=== PATIENT | female | born 2000 | race American Indian/Alaskan Native ===

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

== ENCOUNTER 2020-01-18 10:36 | Emergency (ER) | payer MEDICAID ==
[2020-01-18 10:53] VITALS: BP 138/100
[2020-01-18] MEDS ORDERED: DICYCLOMINE 20 MG TAB PO ONE (12:09)
--- NOTE | 2020-01-18 12:14 | Emergency Department Report ---
ED Abdominal Pain HPI - General Chief Complaint: Abdominal Pain Stated Complaint: ABD PAIN Time Seen by Provider: 01/18/20 11:54 Source: patient Mode of arrival: Ambulatory Limitations: No Limitations - History of Present Illness Initial Comments: 19-year-old -Citizen Of [place] female presents to the emergency room complaining of abdominal pain for the last 2 days. Patient states last night it got worse. Patient reports that is achy constant. Denies any unusual foods no sick contact. Patient reports she is tried taking Tums yesterday and this morning. She also tried Maalox. She reports a decrease in appetite. She currently has Implanon in her arm for control. Past medical history is negative no known drug allergies. Currently takes no medications on a daily basis. She denies any fever chills no nausea no vomiting no diarrhea no constipation. MD Complaint: abdominal pain Onset/Timin -: days(s) Location: epigastric Severity scale (0 -10): 6 Quality: aching Consistency: constant Improves With: nothing Worsens With: nothing Associated Symptoms: denies: nausea, vomiting, diarrhea, constipation - Related Data Previous Rx's Medication Instructions Recorded Last Taken Type Dicyclomine [Bentyl] 10 mg PO QID #12 capsule 01/18/20 Unknown Rx Allergies Allergy/AdvReac Type Severity Reaction Status Date / Time No Known Allergies Allergy Unverified 01/18/20 10:48 ED Review of Systems ROS: Stated complaint: ABD PAIN Other details as noted in HPI Comment: All other systems reviewed and negative ED Past Medical Hx - Past Medical History Hx Hypertension: No Hx Diabetes: No Hx Deep Vein Thrombosis: No Hx Renal Disease: No Hx Sickle Cell Disease: No Hx Seizures: No Hx Asthma: No - Surgical History Past Surgical History?: No - Social History Smoking Status: Never Smoker - Medications Home Medications: Home Medications Medication Instructions Recorded Confirmed Last Taken Type Dicyclomine [Bentyl] 10 mg PO QID #12 capsule 01/18/20 Unknown Rx ED Physical Exam - General Limitations: No Limitations General appearance: alert, in no apparent distress - Head Head exam: Present: atraumatic, normocephalic - Eye Eye exam: Present: normal appearance - ENT ENT exam: Present: mucous membranes moist - Neck Neck exam: Present: normal inspection - Respiratory Respiratory exam: Present: normal lung sounds bilaterally - Cardiovascular Cardiovascular Exam: Present: regular rate - GI/Abdominal GI/Abdominal exam: Present: soft, normal bowel sounds. Absent: distended, tenderness, guarding - Extremities Exam Extremities exam: Present: normal inspection, full ROM - Back Exam Back exam: Present: normal inspection, full ROM - Neurological Exam Neurological exam: Present: alert, oriented X3, normal gait - Psychiatric Psychiatric exam: Present: normal affect, normal mood - Skin Skin exam: Present: warm, dry, intact, normal color. Absent: rash ED Course Vital Signs 01/18/20 10:48 Temperature 98.1 F Pulse Rate 87 Respiratory 16 Rate Blood Pressure 138/100 O2 Sat by Pulse 100 Oximetry - Reevaluation(s) Reevaluation #1: 01/18/20 12:52 Patient reports that her pain is coming down after having the medication. Pat ient was started with a p.o. challenge. ED Medical Decision Making - Medical Decision Making 19-year-old -Citizen Of [place] female presents to the emergency room complaining of abdominal pain for the last 2 days. Patient states last night it got worse. Patient reports that is achy constant. Denies any unusual foods no sick contact. Patient reports she is tried taking Tums yesterday and this morning. She also tried Maalox. She reports a decrease in appetite. She currently has Implanon in her arm for control. Past medical history is negative no known drug allergies. Currently takes no medications on a daily basis. She denies any fever chills no nausea no vomiting no diarrhea no constipation. CBC CMP urinalysis pending. Patient be given Bentyl famotidine and Levsin. Critical care attestation.: If time is entered above; I have spent that time in minutes in the direct care of this critically ill patient, excluding procedure time. ED Disposition Clinical Impression: Abdominal cramping Disposition: DC-01 TO HOME OR SELFCARE Is pt being admited?: No Does the pt Need Aspirin: No Condition: Stable Instructions: Abdominal Pain (ED) Additional Instructions: Take Bentyl as needed for abdominal pain and cramping. Your urine was negative for any infection. Prescriptions: Dicyclomine [Bentyl] 10 mg PO QID #12 capsule Referrals: PRIMARY CARE, [Primary Care Provider] - 3-5 Days [facility] [Provider Group] - 3-5 Days Forms: Work/School Release Form(ED)
[2020-01-18 12:23] LABS: Bilirubin,Urine NEG (Negative); Blood,Urine NEG (Negative); Color,Urine Yellow (Yellow); Mucus,Urine 3+ /HPF; Protein,Urine <15 mg/dL mg/dL (Negative); Urobilinogen,Urine < 2.0 mg/dL (<2.0)
[2020-01-18 12:32] LABS: HCG Qualitative,Urine Negative (Negative)
== END 2020-01-18 13:23 | disposition home or self-care (01) ==
LOC: ED 10:36
DX: R10.13 Epigastric pain (principal)
CPT/HCPCS: 81001; 81025; 99283